=== PATIENT | female | born 1950 | race African-American/Black ===

== ENCOUNTER 2016-12-30 18:13 | Emergency (ER) | payer OTHER ==
[~2016-12-30] VITALS: Ht 162.6 cm; Wt 79.6 kg
[2016-12-30 19:16] LABS: HEMATOCRIT 36.8 % (36.0-46.0); MCH 29.6 PG (29.0-34.0); MCHC 32.3 G/DL (30.0-36.0); MCV 91.5 FL (83-99); RBC DIS.WIDTH-CV 13.8 % (11.8-14.6); RBC DIS.WIDTH-SD 47.2 % (39-53); RED BLOOD COUNT 4.02 M/uL (3.80-5.20); WHITE BLOOD COUNT 5.8 K/uL (4.1-10.2)
[2016-12-30] MEDS ORDERED: BENICAR HCT 401 EACH PO (19:23)
[2016-12-30] MEDS ORDERED: ROSUVASTATIN CAL5 MG PO (19:24)
[2016-12-30] MEDS ORDERED: VERAPAMIL ER200 MG PO (19:24)
[2016-12-30] MEDS ORDERED: VENLAFAXINE HC150 M1 PO (19:24)
[2016-12-30] MEDS ORDERED: ADVAIR 500/501 DISK IH (19:24)
[2016-12-30] MEDS ORDERED: METFORMIN HCL500 MG PO (19:25)
[2016-12-30 19:29] LABS: CHLORIDE 107 mEq/L (99-109); POTASSIUM 3.6 mEq/L (3.7-5.4); SODIUM 141 mEq/L (136-147)
[2016-12-30 19:31] LABS: GLUCOSE 116 mg/dL (70-99)
[2016-12-30 19:32] LABS: ANION GAP 10 MEQ/L (2-14)
[2016-12-30 19:35] LABS: GFR ESTIMATE (CALCULATED) > 59 mL/min/
[2016-12-30 19:36] LABS: UREA NITROGEN (BUN) 10 mg/dL (9-23)
[2016-12-30 19:38] LABS: TROP-I INTERPRETATION NEGATIVE; TROPONIN-I < 0.01 ng/mL (0.0-0.30)
[2016-12-30 19:39] LABS: ADD MIUA? YES; BILIRUBIN NEGATIVE; BLOOD MODERATE; COLOR YELLOW ((YELLOW)); GLUCOSE (STRIP) NEGATIVE; KETONES NEGATIVE; LEUKOCYTES NEGATIVE; NITRITE NEGATIVE; PROTEIN (STRIP) 30; SPECIFIC GRAVITY 1.024 (1.000-1.030)
[2016-12-30 19:49] LABS: BACTERIA RARE /HPF; CALCIUM OXALATE CRYSTALS 2+ /HPF; EPITHELIAL CELLS 1+ /HPF; MUCUS TRACE /LPF; RED BLOOD CELLS 15-20 /HPF (0-5); WHITE BLOOD CELLS 0-5 /HPF (0-5)
[2016-12-30 19:59] LABS: MEAN PLAT.VOLUME 10.4 uM^3 (9.5-12.4); PLAT.SUFFICIENCY ADEQUATE; PLATELET COUNT 339 K/uL (156-360)
[2016-12-30] MEDS ORDERED: PERCOCET 5/31 TABLET PO (20:51)
[2016-12-30] MEDS ORDERED: NAPROSYN500 MG PO (20:51)
[2016-12-30 21:04] VITALS: BP 146/95
== END 2016-12-30 21:18 | disposition home or self-care (01) ==
LOC: EME 18:13
PROVIDERS: Physician Assistant
DX: B34.9 Viral infection, unspecified (principal); R09.1 Pleurisy; Z87.891 Personal history of nicotine dependence; J45.909 Unspecified asthma, uncomplicated; E11.9 Type 2 diabetes mellitus without complications; Z79.84 Long term (current) use of oral hypoglycemic drugs; E78.5 Hyperlipidemia, unspecified; I10 Essential (primary) hypertension; Z82.49 Family history of ischemic heart disease and other diseases of the circulatory system; Z88.6 Allergy status to analgesic agent; Z88.2 Allergy status to sulfonamides
CPT/HCPCS: 71020; 71275; 80048; 81003; 83605; 84484; 85027; 85379; 87040; 93005; 99281; 99285; J1885; J2270; J2405; J7030